=== PATIENT | female | born 1955 | race Caucasian/White ===

== ENCOUNTER 2021-06-17 09:38 | Emergency (ER) | payer OTHER ==
[2021-06-17] MEDS ORDERED: ULTRAM50 MG PO (11:06)
== END 2021-06-17 11:19 | disposition home or self-care (01) ==
LOC: FER 09:38
DX: S22.32XA Fracture of one rib, left side, initial encounter for closed fracture (principal); E66.9 Obesity, unspecified; W01.0XXA Fall on same level from slipping, tripping and stumbling without subsequent striking against object, initial encounter
CPT/HCPCS: 71101; 94010